=== PATIENT | male | born 1995 | race American Indian/Alaskan Native ===

== ENCOUNTER 2020-08-24 15:13 | Emergency (ER) | payer SELFPAY ==
[2020-08-24] MEDS ORDERED: ACETAMINOPHEN 500 MG TAB PO ONE (17:05)
[2020-08-24] MEDS ORDERED: IBUPROFEN 600 MG TAB PO ONE (17:05)
[2020-08-24 17:07] VITALS: BP 149/98
--- NOTE | 2020-08-24 17:53 | Emergency Department Report ---
ED Upper Extremity Inj HPI - General Chief Complaint: Extremity Injury, Upper Stated Complaint: WRIST INJURY RT Source: patient Mode of arrival: Ambulatory Limitations: No Limitations - History of Present Illness Initial Comments: Patient is a 24-year-old -[place] male with no past medical history presents to the ED with complaint of acute onset persistent severe right wrist pain after he slipped and fell down and landed on right wrist about 1 week ago. Patient states that he thought that the pain would improve but that the pain has been persistent and worse especially in the last 3 days. Patient denies head or neck injuries, nausea, vomiting, dizziness, syncope, seizures, chest pain or shortness of breath, numbness and tingling or weakness of right hand or right wrist or shoulder pain. MD Complaint: Injury to:: right, wrist (pain) -: Sudden, week(s) (1) Other Extremity Injury: Wrist: Right (pain) Other Injuries: none Handedness: right Place: home Severity scale (0 -10): 8 Improves With: none Worsens With: movement of extremity Context: fall Associated Symptoms: denies other symptoms. denies: weakness, numbness, neck pain, suspects foreign body, nausea/vomiting, heard/felt popping sensat, other - Related Data Previous Rx's Medication Instructions Recorded Last Taken Type HYDROcodone/APAP 5-325 [[place] 1 each PO Q6HR PRN #12 tablet 08/24/20 Unknown Rx 5/325] Ibuprofen [Motrin] 800 mg PO Q8HR PRN #30 tablet 08/24/20 Unknown Rx Allergies Allergy/AdvReac Type Severity Reaction Status Date / Time No Known Allergies Allergy Verified 08/24/20 18:37 ED Review of Systems ROS: Stated complaint: WRIST INJURY RT Other details as noted in HPI Constitutional: denies: chills, fever Eyes: denies: eye pain, eye discharge, vision change ENT: denies: ear pain, throat pain Respiratory: denies: cough, shortness of breath, wheezing Cardiovascular: denies: chest pain, palpitations Endocrine: no symptoms reported Gastrointestinal: denies: abdominal pain, nausea, diarrhea Genitourinary: denies: urgency, dysuria Musculoskeletal: arthralgia (Right wrist pain). denies: back pain, joint swelling Skin: denies: rash, lesions Neurological: denies: headache, weakness, paresthesias Psychiatric: denies: anxiety, depression Hematological/Lymphatic: denies: easy bleeding, easy bruising ED Past Medical Hx - Past Medical History Previous Medical History?: No - Surgical History Past Surgical History?: No - Social History Smoking Status: Never Smoker Substance Use Type: None - Medications Home Medications: Home Medications Medication Instructions Recorded Confirmed Last Taken Type HYDROcodone/APAP 5-325 [[place] 1 each PO Q6HR PRN #12 tablet 08/24/20 Unknown Rx 5/325] Ibuprofen [Motrin] 800 mg PO Q8HR PRN #30 tablet 08/24/20 Unknown Rx ED Physical Exam - General Limitations: No Limitations General appearance: alert, in no apparent distress - Head Head exam: Present: atraumatic, normocephalic, normal inspection - Eye Eye exam: Present: normal appearance, PERRL, EOMI Pupils: Present: normal accommodation - ENT ENT exam: Present: normal exam, normal orophraynx, mucous membranes moist, TM's normal bilaterally, normal external ear exam - Neck Neck exam: Present: normal inspection, full ROM. Absent: tenderness - Respiratory Respiratory exam: Present: normal lung sounds bilaterally. Absent: respiratory distress, rhonchi, chest wall tenderness, decreased breath sounds - Cardiovascular Cardiovascular Exam: Present: regular rate, normal rhythm, normal heart sounds. Absent: systolic murmur, diastolic murmur, rubs, gallop - GI/Abdominal GI/Abdominal exam: Present: soft, normal bowel sounds. Absent: tenderness, guarding, rebound, hyperactive bowel sounds, hypoactive bowel sounds - Extremities Exam Extremities exam: Present: normal inspection, tenderness (Palpable right wrist tenderness with limited range of motion due to pain), normal capillary refill. Absent: full ROM (Limited range of motion of right wrist due to pain), joint swelling, calf tenderness - Back Exam Back exam: Present: normal inspection, full ROM. Absent: tenderness, CVA tenderness (R), CVA tenderness (L), muscle spasm, paraspinal tenderness, vertebral tenderness - Neurological Exam Neurological exam: Present: alert, oriented X3, CN II-XII intact, normal gait, reflexes normal - Psychiatric Psychiatric exam: Present: normal affect, normal mood - Skin Skin exam: Present: warm, dry, intact, normal color. Absent: rash ED Course Vital Signs 08/24/20 17:04 Temperature 97.7 F Pulse Rate 69 Respiratory 18 Rate Blood Pressure 149/98 O2 Sat by Pulse 98 Oximetry ED Medical Decision Making - Radiology Data Radiology results: report reviewed, image reviewed [facility] [address] [place] [address] XRay Report Signed Patient: CHELO VERDUZCO MR#: [id number] 9 : 1995 Acct:[id number] Age/Sex: 24 / M ADM Date: 08/24/20 Loc: ED Attending Dr: Ordering Physician: ROSHAN LAM Date of Service: 08/24/20 Procedure(s): XR wrist 3+V RT Accession Number(s): [id number] cc: ROSHAN LAM Fluoro Time In Minutes: RIGHT WRIST 3 VIEWS INDICATION / CLINICAL INFORMATION: Fall with right wrist pain. COMPARISON: None available. FINDINGS: BONES / JOINT(S): There is a transverse fracture involving the waist of the scaphoid. Mild cystic changes are present at the site of the fracture with possible mild bony callus formation, suggesting that the fracture is subacute. No other fractures and no evidence of subluxation. SOFT TISSUES: No significant abnormality. ADDITIONAL FINDINGS: None. Signer Name: Severino Fernandez MD Signed: 08/24/2020 5:59 PM Workstation Name: [id number] Transcribed By: RT Dictated By: Severino Fernandez MD Electronically Authenticated By: Severino Fernandez MD Signed Date/Time: 08/24/201758 DD/ 56 TD/TT: - Medical Decision Making This is a 24-year-old -[place] male with no past medical history presents to the ED with complaint of acute onset persistent severe right wrist pain after he slipped and fell down and landed on right wrist about 1 week ago. Patient states that he thought that the pain would improve but that the pain has been persistent and worse especially in the last 3 days. In the ED, patient is alert and oriented x3 and is not in any distress. Patient was treated for pain in the ED and right wrist x-ray showed a transverse fracture involving the waist of the scaphoid. Mild cystic changes are present at the site of the fracture with possible mild bony callus formation, suggesting that the fracture is subacute. No other fractures and no evidence of subluxation. The right wrist was splinted with sugar tong splint in the ED. Patient tolerated procedure well. On reevaluation, patient is neurovascularly intact. Patient's pain is well controlled medications. Patient will discharge home on pain medications and also given referral to the orthopedic surgeon Dr. Archibald for follow-up. Patient was advised return to the ED immediately if symptoms get worse. - Differential Diagnosis Wrist fracture; wrist contusion; wrist sprain; muscle strain; Critical care attestation.: If time is entered above; I have spent that time in minutes in the direct care of this critically ill patient, excluding procedure time. ED Disposition Clinical Impression: Right wrist fracture Qualifiers: Encounter type: initial encounter Fracture type: closed Qualified Code(s): S62.101A - Fracture of unspecified carpal bone, right wrist, initial encounter for closed fracture Contusion of right hand Qualifiers: Encounter type: initial encounter Qualified Code(s): S60.221A - Contusion of right hand, initial encounter Scaphoid fracture of wrist Qualifiers: Encounter type: initial encounter Scaphoid bone location: unspecified portion of scaphoid Fracture type: closed Fracture alignment: displaced Laterality: right Qualified Code(s): S62.001A - Unspecified fracture of navicular [scaphoid] bone of right wrist, initial encounter for closed fracture Disposition: DC-01 TO HOME OR SELFCARE Is pt being admited?: No Does the pt Need Aspirin: No Condition: Stable Instructions: Hand Contusion, [id number], Scaphoid Fracture, Wrist Fracture Treated With Immobilization, [id number] Additional Instructions: The right wrist x-ray shows slightly displaced right scaphoid fracture. Therefore take medication with food, drink plenty of fluids and follow-up with the orthopedic surgeon Dr. Archibald in 3 to 5 days for reevaluation. Contact Dr. Archibald's office first thing on Thursday, September 03, 2020 to schedule a follow-up appointment. Return to the ED immediately if symptoms get worse. Prescriptions: Ibuprofen [Motrin] 800 mg PO Q8HR PRN #30 tablet PRN Reason: Pain , Severe (7-10) HYDROcodone/APAP 5-325 [[place] 5/325] 1 each PO Q6HR PRN #12 tablet PRN Reason: Pain Referrals: SEVERINO ARCHIBALD MD [Staff Physician] - 3-5 Days Time of Disposition: 21:09 Print Language: BELARUSIAN
--- NOTE | 2020-08-24 18:04 | XRay Report ---
RIGHT WRIST 3 VIEWS INDICATION / CLINICAL INFORMATION: Fall with right wrist pain. COMPARISON: None available. FINDINGS: BONES / JOINT(S): There is a transverse fracture involving the waist of the scaphoid. Mild cystic bharath nges are present at the site of the fracture with possible mild bony callus formation, suggesting niraj t the fracture is subacute. No other fractures and no evidence of subluxation. SOFT TISSUES: No significant abnormality. ADDITIONAL FINDINGS: None. Signer Name: Severino Fernandez MD Signed: 08/24/2020 5:59 PM Workstation Name: [id number]
== END 2020-08-24 21:19 | disposition home or self-care (01) ==
LOC: ED 15:13
DX: S62.001A Unspecified fracture of navicular [scaphoid] bone of right wrist, initial encounter for closed fracture (principal); S60.221A Contusion of right hand, initial encounter; Z79.1 Long term (current) use of non-steroidal anti-inflammatories (NSAID); Z79.899 Other long term (current) drug therapy; W01.0XXA Fall on same level from slipping, tripping and stumbling without subsequent striking against object, initial encounter; Y93.89 Activity, other specified; Y92.89 Other specified places as the place of occurrence of the external cause; Y99.8 Other external cause status